=== PATIENT | male | born 1945 | race Caucasian/White ===

== ENCOUNTER 2021-12-30 08:13 | Outpatient (REF) | payer MEDICARE, SELFPAY ==
--- NOTE | 2021-12-30 10:04 | MHC.AU.AEV ---
Adult Audiological Evaluation Date of Visit: 12/30/21 Reason for Appointment: Patient was initially diagnosed with hearing loss and began wearing hearing aids in 2018. He uses a pair of [employer]te [address]. He has been noticing increased difficulty hearing, and suspects there has been a change in his hearing. Ear History: Ear Deformity: None Reported Recent Ear Drainage: None Reported Recent Ear Pain: None Reported Recent Ear Infections: None Reported Ear Infections in Childhood: None Reported History of Ear Wax Buildup: Previous Ear Surgery: None Reported Bothersome Tinnitus/Ringing/Noises in Ears: Both Ears Ear used on the phone: Left Ear Blocked/Full Sensation in Ear(s): None Reported History of occupational noise exposure?: No History: Yes: [place] for 4 years Medical History: Medical History: High Blood Pressure Otoscopy: Right Ear: Unremarkable Left Ear: Partially occluded with cerumen Tympanometry: Tympanometry performed due to: To assess integrity of the middle ear system Right Ear: Normal Middle Ear System (Type A) Left Ear: Normal Middle Ear System (Type A) Hearing Evaluation: Transducer(s) Used: Circumaural Headphones Method: Conventional Audiometry Stimuli Used: Pure Tones Right Ear: Description of Hearing: Mild to severe sensorineural hearing loss Left Ear: Description of Hearing: Normal to severe sensorineural hearing loss Speech Recognition Threshold (SRT): Method Used: Recorded Lists Stimuli Used: Spondee Words Right Ear: 35 dBHL Left Ear: 35 dBHL Word Discrimination: Method: Recorded Lists Word Lists Used:: W-22 Right Ear: 92% at 75 dBHL Left Ear: 100% at 75 dBHL Most Comfortable Level (MCL): Right Ear: 75 dBHL Left Ear: 75 dBhl QuickSIN: Tested unaided at 75 dBHL: 6 dB SNR loss, which suggests difficulty hearing in noise that is mildly elevated above the average listener Recommendations: Audiological re-evaluation in one year. At this time, our clinic does not service [employer] hearing aids. He plans to take today's results to the clinic where he received the hearing aids so they can be adjusted. Use of wax softening drops, such as EarWaxMD or Debrox, is recommended. Diagnosis: Primary Diagnosis: H90.3 Bilateral Sensorineural Hearing Loss Signature: Provider: Gray Roche, CCC-A
== END 2021-12-30 08:14 | disposition home or self-care (01) ==
LOC: HO.SH 08:13
PROVIDERS: Visit Provider Nurse Practitioner Family
DX: Z01.118 Encounter for examination of ears and hearing with other abnormal findings (principal); H90.3 Sensorineural hearing loss, bilateral
CPT/HCPCS: 92557; 92567